=== PATIENT | male | born 1985 | race Hispanic/Latino ===

== ENCOUNTER 2022-09-08 16:23 | Emergency (ER) | payer OTHER ==
[~2022-09-08] VITALS: Ht 175.3 cm; Wt 68.4 kg
[2022-09-08] VITALS (19 sets, daily range): BP systolic 106–125; BP diastolic 60–82
[~2022-09-08 16:23] MED LIST: ACYCLOVIR400 MG PO; KURIC21 EX; LEXAPRO20 MG OR; NO MEDS; PENICILLN VK500 MG OR; ULTRACET OR; UNABLE TO RECONCILE; [UNRECOGNIZED DRUG - REMARK] SC
[2022-09-08 16:45] LABS: BASO% 0.7 % (0-3); EOS% 2.3 % (0-8); LYMPH% 23.8 % (15-41); MEAN CELL VOLUME 83.9 fL CALC (80.0-100.0); MEAN CORPUSCULAR HGB 27.6 pG CALC (26.0-32.0); MEAN CORPUSCULAR HGB CONC 32.9 g/dL CAL (32.0-36.0); MONO% 8.6 % (2-13); NEUT# 3.96 thou/uL (1.82-7.42); NEUT% 64.6 % (42-76); RED BLOOD COUNT 4.92 mill/uL (4.70-6.10); RED CELL DISTRI WIDTH 13.2 % (11.5-15.5)
[2022-09-08 16:50] LABS: HEMATOCRIT 41.3 % (39.0-50.0); HEMOGLOBIN 13.6 g/dl (14.0-18.0)
[2022-09-08 17:04] LABS: ALBUMIN 4.2 g/dL (3.2-5.0); ALKALINE PHOSPHATASE 59 u/l (38-126); ANION GAP 10 (6-22 (CALC)); BILIRUBIN, TOTAL 0.5 mg/dL (0.2-1.3); BUN 18 mg/dL (9-20); BUN/CREATININE RATIO 25 (12-20 (CALC)); CARBON DIOXIDE 28 mmol/l (22-30); CHLORIDE 108 mmol/l (95-108); CREATININE 0.7 mg/dL (0.7-1.3); ETHYL ALCOHOL 0 mg/dl (0-30); GFR FOR AFR.AMER. > 60 ML/MIN (>=60 (CALC)); GFR OTHER RACES > 60 ML/MIN (>=60 (CALC)); POTASSIUM 3.7 mmol/l (3.5-5.1); SGOT/AST 32 u/l (17-59); SODIUM 142 mmol/l (137-146); TOTAL PROTEIN 6.8 g/dL (6.3-8.2)
[2022-09-08 17:17] LABS: CPK 197 u/l (55-170); MAGNESIUM 2.2 mg/dL (1.6-2.3)
[2022-09-08 18:25] LABS: URINE BILIRUBIN - DIPSTICK NEGATIVE (NEGATIVE); URINE BLOOD DIPSTICK NEGATIVE (NEGATIVE); URINE COLOR YELLOW; URINE GLUCOSE - DIPSTICK NEGATIVE (NEGATIVE); URINE KETONE NEGATIVE (NEGATIVE); URINE LEUK ESTERASE NEGATIVE (NEGATIVE); URINE PROTEIN - DIPSTICK TRACE mg/dL (NEG-TRACE); URINE SPECIFIC GRAVITY >=1.030; URINE UROBILINOGEN - DIPSTICK 0.2 E.U./dL (0.2)
[2022-09-08 18:26] LABS: URINE NITRITE - DIPSTICK NEGATIVE (Negative)
== END 2022-09-08 21:36 | DRG 897 ==
LOC: ED 16:23
PROVIDERS: Family Medicine
DX: F15.10 Other stimulant abuse, uncomplicated (principal); F17.200 Nicotine dependence, unspecified, uncomplicated